=== PATIENT | male | born 1985 | race Caucasian/White ===

== ENCOUNTER 2024-09-22 18:30 | Emergency (ER) | payer SELFPAY ==
[2024-09-22 19:00] VITALS: BP 137/87
[2024-09-22 21:26] VITALS: BP 133/92
[2024-09-22 22:00] VITALS: BP 119/78
--- NOTE | 2024-09-22 22:11 | ED.GENMED ---
History of Present Illness
General
Chief Complaint: Abdominal Pain
Time Seen by Provider: 09/22/24 22:02
History of Present Illness
History of Present Illness:
Patient is a 39-year-old man presenting to the emergency department with abdominal pain. Patient states that he developed a umbilical hernia many years ago. Never was evaluated by general surgery states that he was doing housework put pressure on
his abdomen and then developed worsening pain to the area. He states that the pain radiates to his left lower quadrant. No nausea vomiting. He has been having bowel movements though less frequently. He is passing gas. No fevers or chills. No
urinary problems. No sick contacts.
Phy Exam
Physical Exam
Physical Exam:
GENERAL: in no acute distress
HEENT: normocephalic, extraocular movements intact, moist oral mucosa
NECK: normal inspection
RESPIRATORY: no respiratory distress, clear to auscultation bilaterally
CARDIOVASCULAR: regular rate and rhythm
ABDOMEN/: soft, non-distended, non-tender to palpation, no rebound or guarding, soft umbillical hernia
EXTREMITIES: non-tender, no edema/swelling
NEUROLOGIC: awake and alert, moves all extremities
SKIN: warm
Course
Orders/Labs/Results
Orders:
Orders
09/22/24 22:10
CT Abd/pelvis W Iv Cont Urgent
Comment:
Reason For Exam: umbillical hernia
09/22/24 22:13
Acetaminophen [Tylenol] 1,000 mg PO NOW STA
09/22/24 22:32
Basic Metabolic Panel Urgent
Complete Blood Count/With Diff Urgent
09/22/24 22:32
09/22/24 22:32
Vital Signs
Initial and Last Documented VS:
Initial Vital Signs
Temp Pulse Resp BP Pulse Ox
99.1 F 60 16 137/87 98
09/22/24 19:00 09/22/24 19:00 09/22/24 19:00 09/22/24 19:00 09/22/24 19:00
Last Documented Vital Signs
Temp Pulse Resp BP Pulse Ox
99.1 F 60 15 131/90 98
09/22/24 19:00 09/23/24 01:33 09/23/24 01:33 09/23/24 01:33 09/23/24 01:33
MDM/Problems Addressed
Differential Diagnosis Includes:
Patient is a 39-year-old male presenting to the emergency department with abdominal pain and concerns for worsening umbilical hernia. On arrival patient's vital signs are unremarkable exam does show a small umbilical hernia No overlying skin
changes. No significant tenderness. Considered strangulated or obstruction though less likely. Will proceed with blood work and CT scan for further evaluation
*Critical Care Note
Total Time (30-74mins, 75-104mins- exclusive of procedures): Not Applicable
Update Note
Update Note:
CT scan per my interpretation with small umbilical hernia per my interpretation only contains fat Per the preliminary read it is a fat-containing umbilical hernia. Blood work unremarkable. Patient does feel much better. I did advise him to use
MiraLAX or stool softener to help regulate his bowel movements. Will discharge at this time
ED Attending Note
-
Portions of this chart may have been created with voice recognition software.� Occasional wrong word or��sound alike� substitutions may have occurred due to the inherent limitations of voice recognition software.
Discharge Plan
Departure
Patient Disposition: Home (Routine Discharge)
Date of Disposition: 09/23/24
Time of Disposition: 01:03
Patient with high blood pressure during this ER visit?: No
Discharge Problem:
Hernia, umbilical
Instructions: Abdominal wall hernias
Referrals:
PRIVATE,PHYSICIAN [Family Provider] -
Interventions
Interventions:
*Risk Screen - Suicide Last Done: 09/23/24 01:33
*General Assessment Last Done: 09/23/24 01:33
*Neglect/Abuse Screening Last Done: 09/23/24 01:33
*ED- Fall Risk Assessment Last Done: 09/23/24 01:33
*ED COVID-19 Vaccine History Last Done: 09/23/24 01:33
*Nursing Disposition Last Done: 09/23/24 01:33
PC-Anxxki-Ericggpbdr Assessment Last Done: 09/22/24 22:50
Discharge Date and Time
Discharge Date/Time: 09/23/24 01:35
Print Language: [id number]
[2024-09-22] MEDS: TYLENOL 1000 MG PO (22:33)
[2024-09-22 22:43] LABS: % Basophils 0.2 % (0-2); % Eosinophils 2.4 % (0-6); % Immature Granulocytes 0.2 % (0-0.5); % Lymphocytes 35.8 % (20.5-51.1); % Monocytes 7.2 % (1.7-9.3); % Neutrophils 54.2 % (42.2-75.2); Absolute Eosinophils 0.2 10^3/uL (0-0.7); Absolute Monocytes 0.6 10^3/uL (0.1-0.6); Absolute Neutrophils 4.5 10^3/uL (1.4-6.5); Hematocrit 43.8 % (39.0-52.0); Hemoglobin 15.2 g/dL (13.0-18.0); Mean Corp Hgb Conc. 34.7 g/dL (33.0-37.0); Mean Corpuscular Hgb 28.5 pg (27.0-31.0); Mean Platelet Volume 9.9 fL (7.4-10.4); Nucleated Red Blood Cells % 0 % (-); Platelet Count 220 10^3/uL (130-400); Red Blood Cell Count 5.34 10^6/uL (4.70-6.10); Red Cell Dist. Width 12.4 % (11.5-14.5); White Blood Cell Count 8.4 10^3/uL (4.8-10.8)
[2024-09-22 22:46] VITALS: BP 119/98; BMI 33.0
[2024-09-22 23:01] LABS: Blood Urea Nitrogen 19 mg/dl (9-20); Calcium 8.9 mg/dl (8.4-10.2); Carbon Dioxide 24 mmol/L (22-30); Chloride 106 mmol/L (98-107); Estimated Creatinine Clearance 119 ml/min; Glucose 98 mg/dl (70-99); Potassium 4.1 mmol/L (3.5-5.1); Sodium 138 mmol/L (135-145); eGFR > 60.00
[2024-09-23 01:33] VITALS: BP 131/90
== END 2024-09-23 01:35 | disposition home or self-care (01) ==
LOC: EMR 18:30
PROVIDERS: EMERGENCY PHYSICIAN Student in an Organized Health Care Education/Training Program
DX: R10.9 Unspecified abdominal pain (principal); K42.9 Umbilical hernia without obstruction or gangrene
CPT/HCPCS: 99284; 74177; 80048; 85025; Q9967